=== PATIENT | male | born 1975 | race Caucasian/White ===

== ENCOUNTER 2020-11-11 19:01 | Emergency (ER) | payer MEDICAID ==
[~2020-11-11] VITALS: Ht 188 cm; Wt 86.0 kg
[~2020-11-11 19:01] MED LIST: COL100C PO; IBUP-1984 PO
[2020-11-11 19:22] VITALS: BP 126/82
[2020-11-11] MEDS ORDERED: LIDOcaine 1% W/epiNEPHrine 1:200,000 10ml vial IJ ONE (21:40)
--- NOTE | 2020-11-11 22:07 | NUR ---
PA at bedside now stiching up lac.
== END 2020-11-11 22:20 | disposition home or self-care (01) ==
LOC: ER 19:01
DX: S61.411A Laceration without foreign body of right hand, initial encounter (principal); W26.0XXA Contact with knife, initial encounter; Y93.89 Activity, other specified; Y92.89 Other specified places as the place of occurrence of the external cause; Y99.8 Other external cause status
CPT/HCPCS: 12002; 99283